=== PATIENT | male | born 1965 ===

== ENCOUNTER 2016-07-21 18:29 | Emergency (ER) | payer BC ==
[2016-07-21 18:29] VITALS: BMI 31.6
[2016-07-21 18:33] VITALS: RESP 20; TEMP 97.8; O2SAT 98
--- NOTE | 2016-07-21 18:57 | ED PDOC ---
HPI: Hypertension/Hypotension Time Seen by Provider: 07/21/16 18:42 Chief Complaint (Nursing): High Blood Pressure Chief Complaint (Provider): HTN History Per: Patient Additional Complaint(s): Pt is a 51 yo male,PMH of Pre-diabetes, presents to ED with complaints of a pounding headache today while at work. Pt states "feels like my pressure is high but I don't have pressure problem." Pt denies any dizziness, nausea, vomiting, chest pain or SOB Past Medical History Reviewed: Nursing Documentation, Vital Signs Vital Signs: Last Vital Signs Temp 97.8 F 07/21/16 18:31 Pulse 91 H 07/21/16 18:31 Resp 20 07/21/16 18:31 BP 157/102 H 07/21/16 18:31 Pulse Ox 98 07/21/16 18:31 - Medical History PMH: Diabetes (borderline), Diverticulitis, Gall Bladder Disease (POLYPS) Denies: Depression Comment Only: Chronic Kidney Disease (pt denies) - Surgical History Surgical History: Denies: Pacemaker - Family History Family History: States: Unknown Family Hx - Living Arrangements Living Arrangements: With Family - Social History Current smoker - smoking cessation education provided: No Alcohol: None Drugs: Denies - Immunization History Hx Tetanus Toxoid Vaccination: No Hx Influenza Vaccination: No Hx Pneumococcal Vaccination: No - Home Medications Home Medications: Ambulatory Orders Medication Instructions Recorded Omeprazole [Prilosec] 40 mg PO DAILY PRN 10/11/15 Docusate [Colace] 100 mg PO BID #30 cap 05/01/16 traMADol [Ultram] 50 mg PO Q8 PRN #10 tab 05/01/16 - Allergies Allergies/Adverse Reactions: Allergies Allergy/AdvReac Type Severity Reaction Status Date / Time No Known Allergies Allergy Verified 07/21/16 18:30 Review of Systems ROS Statement: Except As Marked, All Systems Reviewed And Found Negative Neurological: Positive for: Headache Physical Exam - Reviewed Nursing Documentation Reviewed: Yes Vital Signs Reviewed: Yes - Physical Exam Appears: Positive for: Well, Non-toxic, No Acute Distress Head Exam: Positive for: ATRAUMATIC, NORMAL INSPECTION, NORMOCEPHALIC Skin: Positive for: Normal Color, Warm, DRY Eye Exam: Positive for: EOMI, Normal appearance, PERRL ENT: Positive for: Normal ENT Inspection Neck: Positive for: Normal, Painless ROM Cardiovascular/Chest: Positive for: Regular Rate, Rhythm Respiratory: Positive for: CNT, Normal Breath Sounds Gastrointestinal/Abdominal: Positive for: Normal Exam, Bowel Sounds, Soft Back: Positive for: Normal Inspection Extremity: Positive for: Normal ROM Neurologic/Psych: Positive for: Alert, Oriented - ECG O2 Sat by Pulse Oximetry: 98 Medical Decision Making Medical Decision Making: EKG interpreted and cleared by ED Py placed on train operator upon arrival: P: 83 POX: 100% on RA BP: 148/96 IV access established and diagnostics ordered Case endorsed to RONN Gee at 20:00 pending diagnostic review and re-eval Disposition - Clinical Impression Clinical Impression: Hypertension - Patient ED Disposition Is Patient to be Admitted: No - Disposition Disposition: Transfer of Care (Gerard) Disposition Time: 19:57 Condition: STABLE - POA Present On Arrival: None
[2016-07-21 19:41] VITALS: BP 142/90; PULSE 81
[2016-07-21 19:41] LABS: BASO % 0.3 % (0.0-2.0); EOS # 0.1 K/uL (0.0-0.7); EOS % 1.2 % (0.0-4.0); HEMATOCRIT 44.7 % (35.0-51.0); LYMPH # 1.8 K/uL (1.0-4.3); LYMPH % 22.7 % (20.0-40.0); MEAN CELL VOLUME 84.9 fl (80.0-94.0); MEAN CORPUSCULAR HGB CONC 32.9 g/dL (33.0-37.0); MEAN PLATELET VOLUME 7.7 fl (7.2-11.7); MONO # 0.5 K/uL (0.0-0.8); MONO % 6.5 % (0.0-10.0); NEUT # 5.5 K/uL (1.8-7.0); NEUT % 69.3 % (50.0-75.0); NRBC % 0.1 % (0.0-0.0)
[2016-07-21 19:55] LABS: ALB/GLOB RATIO 1.3 (1.0-2.1); ALKALINE PHOSPHATASE 85 U/L (38-126); ALT/SGPT 28 U/L (21-72); AST/SGOT 27 U/L (17-59); BILIRUBIN,TOTAL 0.6 mg/dl (0.2-1.3); BLOOD UREA NITROGEN 21 mg/dl (9-20); CALCIUM 9.4 mg/dL (8.4-10.2); CARBON DIOXIDE 28 mmol/L (22-30); CHLORIDE 101 mmol/L (98-107); GFR AFRICAN-AMERICAN > 60; GLUCOSE,RANDOM 89 mg/dL (75-110); POTASSIUM 4.1 MMOL/L (3.6-5.0); SODIUM 143 mmol/l (132-148); TOTAL PROTEIN 7.3 G/DL (6.3-8.2)
[2016-07-21 20:10] LABS: PARTIAL THROMBOPLASTIN TIME 27.8 SECONDS (23.3-32.5)
--- NOTE | 2016-07-22 14:04 | RAD ---
PROCEDURE: CHEST RADIOGRAPH, 1 VIEW HISTORY: htn COMPARISON: 12/14/2015 FINDINGS: LUNGS: Clear. PLEURA: No pneumothorax or pleural fluid seen. CARDIOVASCULAR: Normal. OSSEOUS STRUCTURES: No significant abnormalities. VISUALIZED UPPER ABDOMEN: Normal. OTHER FINDINGS: None. IMPRESSION: No active disease.
--- NOTE | 2016-07-22 15:06 | CARD ---
APPROVED REPORT EKG Measurement Heart [id number] <Conclusion> Sinus rhythm with occasional premature ventricular complexes Otherwise normal ECG
== END 2016-07-21 20:47 | disposition home or self-care (01) ==
LOC: H.ER 18:29
DX: I10 Essential (primary) hypertension (principal); R73.03 Prediabetes; R51 Headache

== ENCOUNTER 2017-07-11 10:57 | Emergency (ER) | payer BC ==
[2017-07-11 10:57] VITALS: BMI 31.6
[2017-07-11 11:05] VITALS: TEMP 98.2; O2SAT 96
--- NOTE | 2017-07-11 11:30 | ED PDOC ---
HPI: Chest Pain Time Seen by Provider: 07/11/17 11:18 Chief Complaint (Nursing): Chest Pain Chief Complaint (Provider): chest pain History Per: Patient History/Exam Limitations: no limitations Onset/Duration Of Symptoms: Hrs (1), Sudden Onset Current Symptoms Are (Timing): Gone Now Severity: Moderate Quality: Sharp Associated Symptoms: denies: Nausea, Dyspnea, Diaphoresis, Syncope Modifying Factors: Other Indicated Below Exacerbating Factors: Other (laughing) Alleviating Factors: None Additional Complaint(s): 52yo male c/o sudden onset left sided chest pain which started suddenly after laughing hard at a coworker. Denies SOB, syncope, hemoptysis, cough, radiation of pain, orthopnea or edema/ LE pain or prior history of similar pain. Denies exertional pain, walks up stairs without symptoms. Sees PMD regularly in [place]. Pain resolved after several minutes, currently only notes fatigue. Past Medical History Reviewed: Historical Data, Nursing Documentation, Vital Signs Vital Signs: Last Vital Signs Temp 98.2 F 07/11/17 11:04 Pulse 98 H 07/11/17 12:01 Resp 18 07/11/17 12:01 BP 131/81 07/11/17 12:01 Pulse Ox 96 07/11/17 11:33 - Medical History PMH: Diabetes (borderline), Diverticulitis, Gall Bladder Disease (POLYPS) Denies: Depression Comment Only: Chronic Kidney Disease (pt denies) - Surgical History Surgical History: No Surg Hx Denies: Pacemaker - Family History Family History: States: Unknown Family Hx - Living Arrangements Living Arrangements: With Family - Social History Current smoker - smoking cessation education provided: No Alcohol: Social Drugs: Denies - Immunization History Hx Tetanus Toxoid Vaccination: No Hx Influenza Vaccination: No Hx Pneumococcal Vaccination: No - Allergies Allergies/Adverse Reactions: Allergies Allergy/AdvReac Type Severity Reaction Status Date / Time No Known Allergies Allergy Verified 07/11/17 11:11 ELVER Risk Score for UA/NSTEMI - ELVER Risk Score Age > 64: NO 3 or more CAD Risk Factors: NO Known CAD (Stenosis greater than 50%): NO Aspirin use in past 7 days: NO Severe Angina: NO EKG ST changes greater than 0.5mm: NO Positive Cardiac Marker: NO ELVER Score: 0 Risk %: 5% Review of Systems Constitutional: Negative for: Fever, Chills Cardiovascular: Positive for: Chest Pain. Negative for: Palpitations, Orthopnea Respiratory: Negative for: Cough, Shortness of Breath, Hemoptysis Gastrointestinal: Negative for: Nausea, Vomiting Genitourinary Male: Negative for: Dysuria, Frequency, Incontinence Musculoskeletal: Negative for: Neck Pain, Shoulder Pain, Leg Pain Skin: Negative for: Rash, Lesions, Jaundice Neurological: Negative for: Weakness, Numbness, Confusion, Headache, Dizziness Physical Exam - Reviewed Nursing Documentation Reviewed: Yes Vital Signs Reviewed: Yes - Physical Exam Appears: Positive for: Well, Non-toxic, No Acute Distress Head Exam: Positive for: ATRAUMATIC, NORMAL INSPECTION, NORMOCEPHALIC Skin: Positive for: Normal Color, Warm, DRY Eye Exam: Positive for: EOMI, Normal appearance, PERRL ENT: Positive for: Normal ENT Inspection Neck: Positive for: Normal, Painless ROM Cardiovascular/Chest: Positive for: Regular Rate, Rhythm. Negative for: Tachycardia Respiratory: Positive for: CNT, Normal Breath Sounds Gastrointestinal/Abdominal: Positive for: Bowel Sounds, Soft. Negative for: Tenderness Back: Positive for: Normal Inspection Extremity: Positive for: Normal ROM. Negative for: Tenderness, Deformity Neurologic/Psych: Positive for: Alert, Oriented. Negative for: Motor/Sensory Deficits - Laboratory Results Result Diagrams: 07/11/17 11:55 07/11/17 11:55 - ECG O2 Sat by Pulse Oximetry: 96 Medical Decision Making Medical Decision Making: workup initiated for chest pain, atypical in presentation which has since resolved. HEART score 1 CXR report reviewed, no acute cardiopulmonary disease labs unremarkable, trop negative and DDimer <100 and BP normal On re-eval in ED approx 14:30- remains without symptoms in ED, Chest pain has not returned. Troponin repeated and remains negative, repeat EKG remains without acute ST changes and no progression since first EKG BP improved. Discussed findings, risk factors and need for further testing as outpt. Pt wanted to go home, and all instructions understood and questions answered. Disposition - Clinical Impression Clinical Impression: Chest pain - Patient ED Disposition Is Patient to be Admitted: No Counseled Patient/Family Regarding: Studies Performed, Diagnosis, Need For Followup, Rx Given - Disposition Referrals: Allan Aleman MD [Staff Provider] - Disposition: Routine/Home Disposition Time: 17:01 Condition: STABLE Additional Instructions: Return to ER for any worse or new symptoms. Recommend Aspirin 81mg daily until cleared by paintings restorer. Instructions: Chest Pain Forms: [employer] ([place])
--- NOTE | 2017-07-11 11:53 | RAD ---
HISTORY: chest pain/ r/o infiltrate COMPARISON: 07/21/2016 TECHNIQUE: Chest PA and lateral FINDINGS: LUNGS: No active pulmonary disease. PLEURA: No significant pleural effusion identified. No pneumothorax apparent. CARDIOVASCULAR: Normal. OSSEOUS STRUCTURES: No significant abnormalities. VISUALIZED UPPER ABDOMEN: Normal. OTHER FINDINGS: None. IMPRESSION: No active disease.
[2017-07-11 12:01] VITALS: BP 131/81; PULSE 98; RESP 18
[2017-07-11 12:09] LABS: BASO % 0.3 % (0.0-2.0); EOS # 0.1 K/uL (0.0-0.7); EOS % 1.6 % (0.0-4.0); HEMOGLOBIN 15.1 g/dL (12.0-18.0); LYMPH # 1.3 K/uL (1.0-4.3); LYMPH % 20.4 % (20.0-40.0); MEAN CELL VOLUME 83.6 fl (80.0-94.0); MEAN CORPUSCULAR HEMOGLOBIN 28.2 pg (27.0-31.0); MEAN CORPUSCULAR HGB CONC 33.8 g/dL (33.0-37.0); MEAN PLATELET VOLUME 7.5 fl (7.2-11.7); MONO # 0.4 K/uL (0.0-0.8); MONO % 7.3 % (0.0-10.0); NEUT # 4.3 K/uL (1.8-7.0); NEUT % 70.4 % (50.0-75.0); NRBC % 0.3 % (0.0-0.0); RBC 5.33 Mil/uL (4.40-5.90); WHITE BLOOD COUNT 6.1 K/uL (4.8-10.8)
[2017-07-11 12:20] LABS: CALCIUM 9.1 mg/dL (8.4-10.2); GFR AFRICAN-AMERICAN > 60; GFR NON-AFRICAN AMERICAN > 60
[2017-07-11 12:31] LABS: B-TYPE NATRIURETIC PEPTIDE 39.9 pg/ml (0-900)
[2017-07-11 12:36] LABS: ALB/GLOB RATIO 1.2 (1.0-2.1); ALBUMIN 4.2 g/dL (3.5-5.0); ALT/SGPT 33 U/L (21-72); AST/SGOT 33 U/L (17-59); BLOOD UREA NITROGEN 18 mg/dl (9-20)
[2017-07-11 12:56] LABS: PARTIAL THROMBOPLASTIN TIME 37.8 Seconds (25.6-37.1)
--- NOTE | 2017-07-11 19:23 | CARD ---
APPROVED REPORT EKG Measurement Heart [id number] ID [id number] <Conclusion> Normal sinus rhythm Left axis deviation Abnormal ECG
--- NOTE | 2017-07-12 18:41 | CARD ---
APPROVED REPORT EKG Measurement Heart [id number] SD [id number] <Conclusion> Normal sinus rhythm Normal ECG
== END 2017-07-11 16:59 | disposition home or self-care (01) ==
LOC: H.ER 10:57
DX: R07.89 Other chest pain (principal)

== ENCOUNTER 2017-11-21 19:13 | Emergency (ER) | payer SELFPAY ==
[2017-11-21 19:14] VITALS: BMI 31.6
[2017-11-21 20:34] VITALS: O2SAT 98
--- NOTE | 2017-11-21 22:17 | ED PDOC ---
HPI: Headache Time Seen by Provider: 11/21/17 21:00 Chief Complaint (Nursing): Headache Chief Complaint (Provider): Headache History Per: Patient History/Exam Limitations: no limitations Onset/Duration Of Symptoms: Days (x2) Current Symptoms Are (Timing): Still Present Additional Complaint(s): 52 y/o male with no significant PMHx presents to the ED complaining of scalp itching and headache, onset two days. Patient reports scalp is dry and when he scratches his skin, he notices flakes coming off. Patient describes headache as a throbbing, tension-like headache that could also be described as a band constricting around his forehead. Patient states headache as a non-thunder clap headache and is not maximal on onset. Denies neck stiffness, cleavers, vision changes, weakness and numbness. PMD: Flavio Barillas Past Medical History Reviewed: Historical Data, Nursing Documentation, Vital Signs Vital Signs: Last Vital Signs Temp 98.5 F 11/21/17 20:31 Pulse 85 11/21/17 20:31 Resp 17 11/21/17 20:31 BP 145/92 H 11/21/17 20:31 Pulse Ox 98 11/21/17 20:31 - Medical History PMH: Diabetes (borderline), Diverticulitis, Gall Bladder Disease (POLYPS) Denies: Depression Comment Only: Chronic Kidney Disease (pt denies) - Surgical History Surgical History: No Surg Hx Denies: Pacemaker - Family History Family History: States: Unknown Family Hx - Immunization History Hx Tetanus Toxoid Vaccination: No Hx Influenza Vaccination: No Hx Pneumococcal Vaccination: No - Home Medications Home Medications: Ambulatory Orders Medication Instructions Recorded [place] Tar [Therapeutic Shampoo] 251 ml TP DAILY #1 shampoo 11/21/17 - Allergies Allergies/Adverse Reactions: Allergies Allergy/AdvReac Type Severity Reaction Status Date / Time No Known Allergies Allergy Verified 07/11/17 11:11 Review of Systems ROS Statement: Except As Marked, All Systems Reviewed And Found Negative Eyes: Negative for: Vision Change Musculoskeletal: Negative for: Neck Pain (stiffness) Skin: Positive for: Other (Scalp itching) Neurological: Positive for: Headache. Negative for: Weakness, Numbness Physical Exam - Reviewed Nursing Documentation Reviewed: Yes Vital Signs Reviewed: Yes - Physical Exam Appears: Positive for: Non-toxic, No Acute Distress Head Exam: Positive for: ATRAUMATIC, NORMOCEPHALIC Skin: Negative for: Normal Color (Scaling patches with minimal erythema ) Eye Exam: Positive for: Normal appearance, EOMI, PERRL Neck: Positive for: Normal, Painless ROM Cardiovascular/Chest: Positive for: Regular Rate, Rhythm. Negative for: Murmur Respiratory: Positive for: Normal Breath Sounds. Negative for: Respiratory Distress Gastrointestinal/Abdominal: Positive for: Normal Exam, Soft. Negative for: Tenderness Back: Positive for: Normal Inspection. Negative for: L CVA Tenderness, R CVA Tenderness, Vertebral Tenderness Extremity: Positive for: Normal ROM. Negative for: Pedal Edema, Deformity Neurologic/Psych: Positive for: Alert, Oriented (x3). Negative for: Motor/ Sensory Deficits - ECG O2 Sat by Pulse Oximetry: 98 (RA) Pulse Ox Interpretation: Normal Medical Decision Making Medical Decision Making: Time: 2119 A/P: 52 y/o male presenting with headache and scalp itching. -- Headache is most likely tension vs. migraine. -- Not concerned for subarachnoid vs. meningitis vs other pathological headache given description of headache. -- Scalp itching most likely due to psoriasis. -- Will treat symptomatically and refer to outpatient. Plan: -- Flexeril 10 mg PO -- Reglan 10 mg PO Scribe Attestation: Documented by Pearl Christina acting as a scribe for Dr. Nathan Mayo MD. Provider Scribe Attestation: All medical record entries made by the Scribe were at my direction and personally dictated by me. I have reviewed the chart and agree that the record accurately reflects my personal performance of the history, physical exam, medical decision making, and the department course for this patient. I have also personally directed, reviewed, and agree with the discharge instructions and disposition. Disposition - Clinical Impression Clinical Impression: Psoriasis, Tension headache - Disposition Referrals: Flavio Barillas MD [Family Provider] - Disposition: Routine/Home Disposition Time: 22:30 Condition: IMPROVED Prescriptions: [place] Tar [Therapeutic Shampoo] 251 ml TP DAILY #1 shampoo Instructions: Tension Headache, Psoriasis Forms: [employer] (Citizen Of [place])
[2017-11-21 23:11] VITALS: BP 147/81; PULSE 78; RESP 16; TEMP 98.8
== END 2017-11-21 23:09 | disposition home or self-care (01) ==
LOC: H.ER 19:13
DX: G44.209 Tension-type headache, unspecified, not intractable (principal); L40.9 Psoriasis, unspecified

== ENCOUNTER 2018-03-12 10:31 | Emergency (ER) | payer SELFPAY ==
[2018-03-12 10:31] VITALS: BMI 31.6
--- NOTE | 2018-03-12 12:05 | ED PDOC ---
HPI: Influenza Time Seen by Provider: 03/12/18 11:45 Chief Complaint: Cough, Cold, Congestion History Per: Patient Additional complaint(s):: B/L facial pain with thick nasal congestion since yesterday. Has been using OTC "emmanuel spray" without relief. Further states facial pain is worse when bending neck forward. Denies fever, cough, head injury, trauma. Past Medical History Reviewed: Historical Data, Nursing Documentation, Vital Signs - Medical History PMH: Diabetes (borderline), Diverticulitis, Gall Bladder Disease (POLYPS) Denies: Depression, HTN Comment Only: Chronic Kidney Disease (pt denies) - Surgical History Surgical History: Denies: Pacemaker - Family History Family History: States: No Known Family Hx - Immunization History Hx Tetanus Toxoid Vaccination: No Hx Influenza Vaccination: No Hx Pneumococcal Vaccination: No - Home Medications Home Medications: Ambulatory Orders Medication Instructions Recorded [place] Tar [Therapeutic Shampoo] 251 ml TP DAILY #1 shampoo 11/21/17 Amoxicillin/Clavulanate [Augmentin 1 tab PO 20 #20 tab 03/12/18 875 MG-125 MG] Fluticasone Propionate [Flonase] 2 spr NS DAILY PRN #1 bottle 03/12/18 Pseudoephedrine HCl [Sudafed] 2 tab PO Q8 PRN #10 tablet 03/12/18 - Allergies Allergies/Adverse Reactions: Allergies Allergy/AdvReac Type Severity Reaction Status Date / Time No Known Allergies Allergy Verified 07/11/17 11:11 Review of Systems ROS Statement: Except As Marked, All Systems Reviewed And Found Negative ENT: Positive for: Nose Congestion Physical Exam - Physical Exam Appears: Positive for: Well, Non-toxic, No Acute Distress Head Exam: Positive for: ATRAUMATIC, NORMAL INSPECTION, NORMOCEPHALIC Skin: Positive for: Normal Color, Warm. Negative for: Rash Eye Exam: Positive for: Normal appearance. Negative for: Periorbital swelling, Periorbital tenderness, Conjunctival injection (b/l) ENT: Positive for: TM Is/Are (non-erythematous, non-bulging b/l), Sinus Pain/Drainage (b/l malar sinus tenderness without swelling), Nasal Congestion (thick yellow congestion). Negative for: Pharyngeal Erythema, Tonsillar Exudate, Tonsillar Swelling Cardiovascular/Chest: Positive for: Regular Rate, Rhythm Respiratory: Positive for: Normal Breath Sounds. Negative for: Respiratory Distress Neurologic/Psych: Positive for: Alert, Oriented (x3). Negative for: Aphasia, Facial Droop Disposition - Clinical Impression Clinical Impression: Acute sinusitis - Patient ED Disposition Is Patient to be Admitted: No - Disposition Referrals: Flavio Barillas MD [Medical Doctor] - Disposition: Routine/Home Disposition Time: 12:04 Condition: STABLE Additional Instructions: FOLLOW UP WITH YOUR PMD FOR FURTHER EVALUATION RETURN TO ED IMMEDIATELY IF SYMPTOMS WORSEN EMMANUEL LOYA, thank you for letting us take care of you today. Your provider was Mickey Lema MD and you were treated for CONGESTION. The emergency medical care you received today was directed at your acute symptoms. If you were prescribed any medication, please fill it and take as directed. It may take several days for your symptoms to resolve. Return to the Emergency Department if your symptoms worsen, do not improve, or if you have any other problems. Please contact your doctor or call one of the physicians/clinics you have been referred to that are listed on the Patient Visit Information form that is included in your discharge packet. Bring any paperwork you were given at discharge with you along with any medications you are taking to your follow up visit. Our treatment cannot replace ongoing medical care by a primary care provider outside of the emergency department. Thank you for allowing the [facility] team to be part of your care today. If you had an X-Ray or CT scan: A Radiologist will review the ED reading if any change in treatment is needed we will contact you. If you had a blood, urine, or wound culture: It will take several days for the results, if any change in treatment is needed we will contact you. If you had an STI test: It will take 48 hours for the results. Please call after 1 week if you have not heard back. Prescriptions: Amoxicillin/Clavulanate [Augmentin 875 MG-125 MG] 1 tab PO 20 #20 tab Fluticasone Propionate [Flonase] 2 spr NS DAILY PRN #1 bottle PRN Reason: Allergy Symptoms Pseudoephedrine HCl [Sudafed] 2 tab PO Q8 PRN #10 tablet PRN Reason: Nasal Congestion Instructions: Sinusitis, Adult (DC) Forms: [employer] ([place])
[2018-03-12 12:08] VITALS: BP 152/99; PULSE 79; RESP 19; TEMP 97.7; O2SAT 96
== END 2018-03-12 12:15 | disposition home or self-care (01) ==
LOC: H.ER 10:31
DX: J01.90 Acute sinusitis, unspecified (principal)